=== PATIENT | female | born 1990 | race Caucasian/White ===

== ENCOUNTER → 2016-09-15 | Outpatient (CLI) | payer BC | LOC: MRI 07:50 | DX: G35 Multiple sclerosis (principal); Z88.0 Allergy status to penicillin | CPT/HCPCS: 70553; A9577 ==

== ENCOUNTER → 2021-01-19 | Outpatient (CLI) | payer BC ==
[~2021-01-19] MED LIST: BACLOFEN10 MG PO; BENTYL 10MG CAP10 MG PO; FLOMAX 0.4 MG0.4 MG PO; FLOMAX0.4 MG PO; IBUPROFEN600 MG PO; PERCOCET 5-3251 EACH PO; TORADOL 10 MG T10 MG PO; ZOFRAN ODT 4 MG4 MG PO; ZOFRAN4 MG PO
== END ==
LOC: OPSV 10:46
DX: G35 Multiple sclerosis (principal)
CPT/HCPCS: 96365; J2930; J7070

== ENCOUNTER → 2021-01-20 | Outpatient (CLI) | payer BC ==
[~2021-01-20] VITALS: Ht 165.1 cm; Wt 124.7 kg
== END ==
LOC: OPSV 08:18
DX: G35 Multiple sclerosis (principal)
CPT/HCPCS: 96365; J2930; J7070

== ENCOUNTER → 2021-01-21 | Outpatient (CLI) | payer BC ==
[~2021-01-21] VITALS: Ht 165.1 cm; Wt 124.7 kg
== END ==
LOC: OPSV 08:18
DX: G35 Multiple sclerosis (principal); Z88.0 Allergy status to penicillin
CPT/HCPCS: 96365; J2930; J7070

== ENCOUNTER → 2021-03-04 | Outpatient (CLI) | payer BC ==
[~2021-03-04] VITALS: Ht 165.1 cm; Wt 102.1 kg
== END ==
LOC: OPSV 13:00
DX: G35 Multiple sclerosis (principal)
CPT/HCPCS: 96365; J2930; J7070

== ENCOUNTER → 2021-03-05 | Outpatient (CLI) | payer BC ==
[~2021-03-05] VITALS: Ht 165.1 cm; Wt 124.7 kg
== END ==
LOC: OPSV 06:58
DX: G35 Multiple sclerosis (principal)
CPT/HCPCS: 96365; J2930; J7070

== ENCOUNTER → 2021-03-06 | Outpatient (CLI) | payer BC | LOC: OPSV 07:06 | DX: G35 Multiple sclerosis (principal) | CPT/HCPCS: 96365; J2930; J7070 ==

== ENCOUNTER → 2021-03-07 | Outpatient (CLI) | payer BC ==
[~2021-03-07] VITALS: Ht 165.1 cm; Wt 102.1 kg
== END ==
LOC: OPSV 13:00
DX: G35 Multiple sclerosis (principal)
CPT/HCPCS: 96365; J2930; J7030

== ENCOUNTER → 2021-03-08 | Outpatient (CLI) | payer BC ==
[~2021-03-08] VITALS: Ht 165.1 cm; Wt 102.1 kg
== END ==
LOC: OPSV 11:33
DX: G35 Multiple sclerosis (principal)
CPT/HCPCS: 96365; J2930; J7030

== ENCOUNTER → 2022-01-20 | Outpatient (CLI) | payer BC ==
[~2022-01-20] VITALS: Ht 165.1 cm; Wt 102.1 kg
== END ==
LOC: OPSV 09:00
DX: G35 Multiple sclerosis (principal)
CPT/HCPCS: 96365; J2930; J7070

== ENCOUNTER → 2022-01-23 | Outpatient (CLI) | payer BC ==
[~2022-01-23] VITALS: Ht 165.1 cm; Wt 102.1 kg
== END ==
LOC: OPSV 09:00
DX: G35 Multiple sclerosis (principal)
CPT/HCPCS: 96365; J2930; J7070

== ENCOUNTER → 2022-01-24 | Outpatient (CLI) | payer BC ==
[~2022-01-24] VITALS: Ht 165.1 cm; Wt 102.1 kg
== END ==
LOC: OPSV 07:57
DX: G35 Multiple sclerosis (principal); Z88.0 Allergy status to penicillin
CPT/HCPCS: 96365; J2930; J7070